=== PATIENT | male | born 1985 | race Two or more races ===

== ENCOUNTER 2020-08-21 05:16 | Emergency (ER) | payer SELFPAY ==
[~2020-08-21] VITALS: Ht 188 cm; Wt 107.7 kg
--- NOTE | 2020-08-21 05:29 | NUR ---
PT REPORTS COMING INTO ED TODAY FOR TOOTH PAIN, BOTH RIGHT PORTION OF MOUTH. STATES HE CRACKED A TOOTH AND DID A HOME FILLING ON IT ABOUT 1-2 WEEKS AGO. PT STATES THIS MORNING HE WOKE UP WITH SWELLING ON THAT SIDE OF THE FACE AND PAIN. PT RESTING ON DAVID, NAD, APPEARS COMFORTABLE. VICTORIANO LARA AT FOR EVAL AND POC. TM
[2020-08-21] MEDS ORDERED: LIDOCAINE-MPF 1%, 5ML ONE ×2 (05:33→05:41)
[2020-08-21] MEDS ORDERED: AMOXICILLIN/CLAV 875-125MG TABLET ONE (05:41)
[2020-08-21] MEDS ORDERED: HYDROcodone/APAP 5/325 TABLET ONE (05:41)
[2020-08-21] MEDS ORDERED: HYDROcodone/APAP 5/325 TABLET PO ONE (06:00)
[2020-08-21] MEDS ORDERED: LIDOCAINE-MPF 1%, 5ML INFIL ONE (06:00)
[2020-08-21] MEDS ORDERED: AMOXICILLIN/CLAV 875-125MG TABLET PO ONE (06:00)
[2020-08-21 06:09] VITALS: BP 138/96
--- NOTE | 2020-08-21 06:24 | NUR ---
Patient given discharge instructions and they have confirmed that they understand the instructions. Patient ambulatory with steady gait. NAD, DENIES ADDITIONAL QUESTIONS OR NEEDS AT THIS TIME. VERIFIES HE WILL FOLLOW UP WITH PCP REGARDING BP. NO PERSONAL BELONGINGS LEFT IN ROOM AFTER DC.
== END 2020-08-21 06:25 | disposition home or self-care (01) ==
LOC: ED 05:37
DX: K02.9 Dental caries, unspecified (principal); K08.89 Other specified disorders of teeth and supporting structures
CPT/HCPCS: 64400; 99284